=== PATIENT | male | born 1975 | race Caucasian/White ===

== ENCOUNTER 2017-07-28 08:41 | Emergency (ER) | payer OTHER ==
[2017-07-28] MEDS ORDERED: NS 1,000 ML IV ONE (09:20)
--- NOTE | 2017-07-28 09:36 | EDPHY ---
H & P Time Seen by Provider: 07/28/17 08:57 HPI/ROS: CHIEF COMPLAINT: Abdominal pain, diarrhea HISTORY OF PRESENT ILLNESS: 42-year-old male presents to the emergency department with severe epigastric abdominal pain and pain in his right and his left upper quadrants over last 4 days. He states that he started with watery diarrhea about every 30 min the 1st few days and was lying in bed most of the time. He states that he has felt feverish and chilled and achy. He is also complaining of pain in his back. He feels that the pain in the epigastric area radiates to the back. He denies any other pain in his chest or difficulty breathing. Denies recent travel. He states that his dog also has diarrhea. No other ill family members. No urinary symptoms. He does feel that he is urinating very little compared to what he is in taking. REVIEW OF SYSTEMS: Constitutional: No fever, no chills. Eyes: No double or blurry vision. ENT: No sore throat. Respiratory: No cough, no shortness of breath. Cardiac: No chest pain. Gastrointestinal: As above. No vomiting. Poor appetite. Genitourinary: No dysuria. Musculoskeletal: No neck or back pain. Skin: No rashes. Neurological: No headache. Past Medical/Surgical History: Negative Social History: Smoking Status: Never smoked Physical Exam: General Appearance: Alert, no distress. Temperature 36.7 degrees. at bedside. Eyes: Pupils equal and round. Extraocular motions are all intact. ENT: Mouth: Mucous membranes moist. Respiratory: No wheezing, rhonchi, or rales, lungs are clear to auscultation. Cardiovascular: Regular rate and rhythm. Gastrointestinal: Abdomen is soft. Diffuse tenderness with palpation with greatest tenderness in epigastric area as well as right and left upper quadrants. There is no rebound, guarding or masses noted. No CVA tenderness bilaterally. Neurological: Alert and oriented x 3, cranial nerves II through XII grossly intact Skin: Warm and dry, no rashes. Musculoskeletal: Nontender to palpate along the cervical, thoracic or lumbar spine. Neck is supple. Extremities: Full range of motion and no peripheral edema. Psychiatric: Patient is oriented X 3, there is no agitation. Constitutional: Initial Vital Signs Temperature (C) 36.7 C 07/28/17 08:45 Heart Rate 83 07/28/17 08:45 Respiratory Rate 18 07/28/17 08:45 Blood Pressure 126/82 H 07/28/17 08:45 O2 Sat (%) 96 07/28/17 08:45 O2 Delivery Mode Room Air Allergies/Adverse Reactions: No Known Allergies Allergy (Unverified 07/28/17 08:44) Home Medications: Medication Instructions Recorded Dicyclomine [Bentyl] 20 mg PO QID #5 tab 07/28/17 Immodium 07/28/17 Medical Decision Making ED Course/Re-evaluation: 42-year-old male presents to the emergency department with upper abdominal pain and diarrhea. Laboratory studies reveal normal CBC and chemistries. Patient was given oral Bentyl and 20 mg of Pepcid. He was feeling a bit better. He was drinking fluids. He did receive IV normal saline. He was also able to provide stool specimen which is in the lab and is pending. I discussed the pros and cons of CT imaging of his abdomen and pelvis including radiation exposure and both the and patient agree with not obtaining CT scan. His abdomen is soft. He has no peritoneal signs. His laboratory studies are normal. I did give him abdominal pain precautions including returning if he still continued to have pain or he should return sooner if he developed bloody diarrhea, fever, increasing pain or any other concerns. Patient was comfortable being discharged home. - Data Points Laboratory Results: Laboratory Results 07/28/17 09:45 07/28/17 09:45 07/28/17 07/28/17 09:45 09:45 WBC 8.08 10^3/uL 10^3/uL (3.80-9.50) RBC 5.03 10^6/uL 10^6/uL (4.40-6.38) Hgb 16.0 g/dL g/dL (13.7-17.5) Hct 44.4 % % (40.0-51.0) MCV 88.3 fL fL (81.5-99.8) MCH 31.8 pg pg (27.9-34.1) MCHC 36.0 g/dL g/dL (32.4-36.7) RDW 12.0 % % (11.5-15.2) Plt Count 258 10^3/uL 10^3/uL (150-400) MPV 9.9 fL fL (8.7-11.7) Neut % (Auto) 71.4 % % (39.3-74.2) Lymph % (Auto) 15.7 % % (15.0-45.0) [place] % (Auto) 10.6 % % (4.5-13.0) Eos % (Auto) 1.5 % % (0.6-7.6) Baso % (Auto) 0.6 % % (0.3-1.7) Nucleat RBC Rel Count 0.0 % % (0.0-0.2) Absolute Neuts (auto) 5.76 10^3/uL 10^3/uL (1.70-6.50) Absolute Lymphs (auto) 1.27 10^3/uL 10^3/uL (1.00-3.00) Absolute Monos (auto) 0.86 10^3/uL H 10^3/uL (0.30-0.80) Absolute Eos (auto) 0.12 10^3/uL 10^3/uL (0.03-0.40) Absolute Basos (auto) 0.05 10^3/uL 10^3/uL (0.02-0.10) Absolute Nucleated RBC 0.00 10^3/uL 10^3/uL (0-0.01) Immature Gran % 0.2 % % (0.0-1.1) Immature Gran # 0.02 10^3/uL 10^3/uL (0.00-0.10) Sodium 144 mEq/L mEq/L (135-145) Potassium 4.2 mEq/L mEq/L (3.3-5.0) Chloride 105 mEq/L mEq/L (97-110) Carbon Dioxide 25 mEq/l mEq/l (22-31) Anion Gap 14 mEq/L mEq/L (8-16) BUN 16 mg/dL mg/dL (7-23) Creatinine 1.0 mg/dL mg/dL (0.7-1.3) Estimated GFR > 60 Glucose 87 mg/dL mg/dL (70-100) Calcium 9.2 mg/dL mg/dL (8.5-10.4) Total Bilirubin 1.0 mg/dL mg/dL (0.1-1.4) Conjugated Bilirubin 0.3 mg/dL mg/dL (0.0-0.5) Unconjugated Bilirubin 0.7 mg/dL mg/dL (0.0-1.1) AST 48 IU/L IU/L (17-59) ALT 52 IU/L IU/L (21-72) Alkaline Phosphatase 96 IU/L IU/L (38-126) Total Protein 7.2 g/dL g/dL (6.3-8.2) Albumin 4.3 g/dL g/dL (3.5-5.0) Lipase 87 IU/L IU/L (23-300) Medications Given: Discontinued Medications Dicyclomine HCl (Bentyl) 20 mg PO EDNOW ONE Stop: 07/28/17 10:22 Last Admin: 07/28/17 10:47 Dose: 20 mg Famotidine (Pepcid) 20 mg IVP EDNOW ONE Stop: 07/28/17 10:21 Last Admin: 07/28/17 10:55 Dose: 20 mg Sodium Chloride (Ns) 1,000 mls @ 0 mls/hr IV ONCE ONE PRN Reason: Wide Open Stop: 07/28/17 09:21 Last Admin: 07/28/17 09:47 Dose: 1,000 mls Departure - Departure Disposition: Home, Routine, Self-Care Clinical Impression: Diarrhea Qualifiers: Diarrhea type: unspecified type Qualified Code(s): R19.7 - Diarrhea, unspecified Abdominal pain Qualifiers: Abdominal location: epigastric Qualified Code(s): R10.13 - Epigastric pain Instructions: Acute Diarrhea (ED), Acute Abdominal Pain (ED) Additional Instructions: Abdominal Pain: Return to the Emergency Department immediately for increasing pain, fever, vomiting, or if not completely better in 8-12 hours. Call [phone] for the results of your stool culture within 48 hr. Bentyl as needed for abdominal cramping. Referrals: Jacqueline Starks MD [Medical Doctor] - 1 day, if not improved (Primary care provider transitional nurse) Louie Michel MD [Medical Doctor] - As per Instructions Victor Manuel Centeno MD [[facility] [place] Primary Care Provider] - As per Instructions Stand Alone Forms: Statement of Treatment, Airline Excuse Prescriptions: Dicyclomine [Bentyl] 20 mg PO QID #5 tab
[2017-07-28 10:03] LABS: PLATELET COUNT 258 10^3/uL (150-400)
[2017-07-28] MEDS ORDERED: FAMOTIDINE 20 MG/2 ML SDV IVP ONE (10:20)
[2017-07-28] MEDS ORDERED: DICYCLOMINE 10 MG CAP PO ONE (10:21)
[2017-07-28 11:31] VITALS: BP 122/74
== END 2017-07-28 11:30 | disposition home or self-care (01) ==
DX: R19.7 Diarrhea, unspecified (principal); R10.13 Epigastric pain; E86.9 Volume depletion, unspecified
CPT/HCPCS: 96374